=== PATIENT | male | born 1980 | race Caucasian/White ===

== ENCOUNTER 2023-11-23 00:23 | Inpatient (IN) | payer MEDICAID, OTHER ==
[~2023-11-23] VITALS: Ht 167.6 cm; Wt 81.4 kg
[2023-11-23] VITALS (78 sets, daily range): BP systolic 73–115; BP diastolic 44–71; TEMP 98.1–99.6; O2SAT 89–99
[~2023-11-23 00:23] MED LIST: METH10TA2 PO
[2023-11-23] MEDS: IV NS 0.9% 1,000 ML BAG IV ONE ×3 (00:47→03:00)
[2023-11-23 00:57] LABS: BASOPHILS % (AUTO) 0.2 % (0.0-2.0); EOSINOPHILS % (AUTO) 0.3 % (0.0-6.0); HEMATOCRIT 25 % (39-51); HEMOGLOBIN 8.3 g/dL (13.5-17.5); LYMPHOCYTES # (AUTO) 0.3 K/uL (0.8-4.8); LYMPHOCYTES % (AUTO) 3.5 % (20.0-44.0); MEAN CORPUSCULAR HEMOGLOBIN 29 PG (26.0-33.0); MEAN CORPUSCULAR HGB CONC 34 g/dl (31.0-36.0); MEAN CORPUSCULAR VOLUME 86 fL (80-96); MONOCYTES # (AUTO) 0.3 K/uL (0.1-1.30); MONOCYTES % (AUTO) 4.2 % (2.0-12.0); NEUTROPHILS # (AUTO) 7.1 K/uL (1.8-8.9); NEUTROPHILS % (AUTO) 91.8 % (43.0-81.0); PLATELET COUNT (AUTO) 268 K/uL (150-450); RED BLOOD CELL COUNT(AUTO) 2.88 MIL/uL (4.5-6.0); RED CELL DISTRIBUTION WIDTH 15.4 % (11.5-15.0); WHITE BLOOD COUNT (AUTO) 7.8 K/uL (4.3-11.0)
[2023-11-23 01:04] LABS: CALCIUM, SERUM 7.8 mg/dL (8.5-10.1); POTASSIUM 4.6 mmol/L (3.5-5.1)
[2023-11-23 01:10] LABS: BILIRUBIN,DIRECT 0.4 mg/dL (0.0-0.2); BILIRUBIN,TOTAL 0.6 mg/dL (0.2-1.0); TOTAL PROTEIN, SERUM 5.2 g/dL (6.4-8.2)
[2023-11-23 01:11] LABS: CREATININE 11.4 mg/dL (0.6-1.3)
[2023-11-23 01:49] LABS: APPEARANCE,URINE CLEAR (CLEAR); BILIRUBIN,URINE NEGATIVE (NEGATIVE); BLOOD, URINE 3+ Ery/uL (NEGATIVE); COLOR,URINE YELLOW (YELLOW); KETONES,URINE NEGATIVE (NEGATIVE); LEUKOCYTE ESTERASE ,URINE NEGATIVE (NEGATIVE); NITRITE, URINE NEGATIVE (NEGATIVE); PROTEIN,URINE 3+ mg/dl (NEGATIVE); UGLUCOSE TRACE mg/dL (NEGATIVE); UROBILINOGEN,URINE 0.2 EU/dL (0.2)
[2023-11-23 01:52] LABS: ADD URINE CULTURE NO; BACTERIA,URINE Rare /HPF (None Seen); RBC,URINE 21-50 /HPF (0-2); SQUAMOUS EPITHELIAL CELL,UR Few /HPF (None Seen)
[2023-11-23] MEDS ORDERED: MAG HYDROX/AL HYDROX/SIMETH 30 ML UDC PO PRN (02:30)
[2023-11-23] MEDS ORDERED: Z GUARD REMEDY 4 OZ OINT TP PRN (02:30)
[2023-11-23] MEDS ORDERED: NOREPINEPHRINE 8MG/250ML RTU 250 ML IV ONE (03:37)
[2023-11-23 03:52] LABS: NT-PRO BNP 15450 pg/mL (0-125)
[2023-11-23] MEDS: NOREPINEPHRINE 8 MG in IV D5W 242 ML IV PRN ×2 (03:52→05:21)
[2023-11-23] MEDS ORDERED: MORPHINE SULFATE INJ 2 MG/ML DISP.SYRIN ONE (04:05)
[2023-11-23] MEDS: MORPHINE SULFATE INJ 2 MG/ML DISP.SYRIN IV PRN ×2 (04:08→09:21)
[2023-11-23] MEDS ORDERED: NOREPINEPHRINE 8 MG in IV D5W 242 ML IV PRN (05:00)
[2023-11-23] MEDS: ALBUMIN 25% 25 GM in PREMIX 1 EA IV SCH (06:07)
[2023-11-23] MEDS: ALBUMIN 25% 100 ML IV ONE (06:14)
[2023-11-23] MEDS: NOREPINEPHRINE 8MG/250ML RTU 250 ML IV ONE (06:27)
[2023-11-23] MEDS ORDERED: MORPHINE SULFATE INJ 2 MG/ML DISP.SYRIN IV PRN ×2 (06:40→08:00)
[2023-11-23] MEDS: MORPHINE SULFATE INJ 2 MG/ML DISP.SYRIN IV ONE (06:47)
[2023-11-23] MEDS: PANTOPRAZOLE 40 MG TABLET.DR PO SCH (08:11)
[2023-11-23] MEDS: ASPIRIN 81 MG TAB.CHEW PO SCH (08:11)
[2023-11-23] MEDS: FUROSEMIDE 20 MG/2 ML VIAL IV SCH (08:11)
[2023-11-23 10:38] LABS: BASOPHILS % (AUTO) 0.1 % (0.0-2.0); EOSINOPHILS # (AUTO) 0.1 K/uL (0.0-0.7); EOSINOPHILS % (AUTO) 0.9 % (0.0-6.0); HEMATOCRIT 21 % (39-51); LYMPHOCYTES # (AUTO) 0.3 K/uL (0.8-4.8); LYMPHOCYTES % (AUTO) 2.7 % (20.0-44.0); MEAN CORPUSCULAR HEMOGLOBIN 28 PG (26.0-33.0); MEAN CORPUSCULAR HGB CONC 33 g/dl (31.0-36.0); MEAN CORPUSCULAR VOLUME 87 fL (80-96); MONOCYTES # (AUTO) 0.2 K/uL (0.1-1.30); NEUTROPHILS # (AUTO) 9.5 K/uL (1.8-8.9); NEUTROPHILS % (AUTO) 94.3 % (43.0-81.0); PLATELET COUNT (AUTO) 317 K/uL (150-450); WHITE BLOOD COUNT (AUTO) 10.1 K/uL (4.3-11.0)
[2023-11-23 10:47] LABS: HEMOGLOBIN 6.8 g/dL (13.5-17.5)
[2023-11-23 10:54] LABS: BILIRUBIN,DIRECT 0.4 mg/dL (0.0-0.2); BILIRUBIN,TOTAL 0.6 mg/dL (0.2-1.0); CALCIUM, SERUM 7.2 mg/dL (8.5-10.1); MAGNESIUM 1.9 mg/dL (1.8-2.4); PHOSPHORUS 6.3 mg/dL (2.5-4.9); POTASSIUM 4.4 mmol/L (3.5-5.1); TOTAL PROTEIN, SERUM 4.8 g/dL (6.4-8.2)
[2023-11-23 10:58] LABS: ALBUMIN 1.2 g/dL (3.4-5.0); CREATININE 11.2 mg/dL (0.6-1.3)
[2023-11-23 11:06] LABS: NT-PRO BNP 13089 pg/mL (0-125)
[2023-11-23 11:08] LABS: ANISOCYTOSIS 1+; BAND % (MANUAL) 3 % (0.0-5.0); BASOPHILS % (MANUAL) 0 % (0.0-2.0); EOSINOPHILS % (MANUAL) 0 % (0-4); LYMPHOCYTES % (MANUAL) 6 % (16-48); MONOCYTES % (MANUAL) 4 % (0-11.0); NEUTROPHILS % (MANUAL) 87 (42-76); PLATELET ESTIMATE ADEQUATE; THYROID STIMULATING HORMONE 3.81 uIU/mL (0.358-3.74)
[2023-11-23] MEDS ORDERED: LEVOTHYROXINE SODIUM 100 MCG TABLET PO SCH (13:00)
[2023-11-23] MEDS: ACETAMINOPHEN 325 MG TABLET PO PRN (13:16)
[2023-11-23] MEDS: CEFEPIME 2 GM in IV D5W 100 ML IV ONE (19:43)
[2023-11-23] MEDS: VANCOMYCIN 1 GM in IV D5W 250 ML IV SCH (20:17)
[2023-11-24] VITALS (83 sets, daily range): BP systolic 71–125; BP diastolic 37–63; TEMP 97.4–99.7; O2SAT 92–99
[2023-11-24] MEDS: ONDANSETRON HCL/PF 4 MG/2 ML VIAL IVP PRN (02:23)
[2023-11-24 05:35] LABS: CALCIUM, SERUM 7.3 mg/dL (8.5-10.1); POTASSIUM 4.7 mmol/L (3.5-5.1)
[2023-11-24 08:56] LABS: HEMATOCRIT 24 % (39-51); MEAN CORPUSCULAR HEMOGLOBIN 28 PG (26.0-33.0); MEAN CORPUSCULAR HGB CONC 33 g/dl (31.0-36.0); MEAN CORPUSCULAR VOLUME 86 fL (80-96); PLATELET COUNT (AUTO) 283 K/uL (150-450); RED BLOOD CELL COUNT(AUTO) 2.82 MIL/uL (4.5-6.0); RED CELL DISTRIBUTION WIDTH 15.5 % (11.5-15.0)
[2023-11-24 09:28] LABS: FERRITIN 430 ng/mL (8-388)
[2023-11-24 10:58] LABS: IRON, SERUM 5 ug/dl (50-175); TOTAL IRON BINDING CAPACITY 38 ug/dl (250-450)
[2023-11-24] MEDS ORDERED: HALOPERIDOL LACTATE INJ 5 MG/ML VIAL IV PRN (11:00)
[2023-11-24] MEDS: HALOPERIDOL LACTATE INJ 5 MG/ML VIAL IM PRN (11:07)
[2023-11-24] MEDS ORDERED: NEPRO VAN 237 ML CAN PO PRN (18:00)
[2023-11-24] MEDS: NOREPINEPHRINE 32 MG in IV NS 0.9% 218 ML IV PRN (20:15)
[2023-11-24] MEDS: CEFEPIME 1 GM in IV D5W 50 ML IV SCH (20:30)
[2023-11-25] VITALS (105 sets, daily range): BP systolic 77–115; BP diastolic 38–63; TEMP 97.6–99; O2SAT 90–98
[2023-11-25 04:28] LABS: CALCIUM, SERUM 7.7 mg/dL (8.5-10.1); POTASSIUM 4.3 mmol/L (3.5-5.1)
[2023-11-25] MEDS: DEXTROSE 50%-WATER 50 ML DISP.SYRIN IVP ONE (05:08)
[2023-11-25 09:09] LABS: HEPATITIS B CORE AB, IgM Negative (Negative); HEPATITIS B CORE AB, TOTAL Negative (Negative); HEPATITIS B SURFACE AB Reactive (.); HEPATITIS Be AG Negative (Negative)
[2023-11-25] MEDS: ALBUMIN 25% 25 GM in PREMIX 1 EA IV ONE (21:03)
[2023-11-25] MEDS: VANCOMYCIN POST DIALYSIS 500MG IV PRN (22:26)
[2023-11-26] VITALS (98 sets, daily range): BP systolic 92–125; BP diastolic 41–91; TEMP 97.6–100; O2SAT 66–98
[2023-11-26 04:34] LABS: EOSINOPHILS # (AUTO) 0.1 K/uL (0.0-0.7); EOSINOPHILS % (AUTO) 0.3 % (0.0-6.0); HEMATOCRIT 23 % (39-51); HEMOGLOBIN 7.6 g/dL (13.5-17.5); LYMPHOCYTES # (AUTO) 0.7 K/uL (0.8-4.8); LYMPHOCYTES % (AUTO) 2.3 % (20.0-44.0); MEAN CORPUSCULAR HEMOGLOBIN 28 PG (26.0-33.0); MEAN CORPUSCULAR HGB CONC 33 g/dl (31.0-36.0); MEAN CORPUSCULAR VOLUME 85 fL (80-96); MONOCYTES # (AUTO) 0.5 K/uL (0.1-1.30); MONOCYTES % (AUTO) 1.4 % (2.0-12.0); NEUTROPHILS # (AUTO) 31.1 K/uL (1.8-8.9); PLATELET COUNT (AUTO) 308 K/uL (150-450); RED BLOOD CELL COUNT(AUTO) 2.72 MIL/uL (4.5-6.0); RED CELL DISTRIBUTION WIDTH 15.5 % (11.5-15.0)
[2023-11-26 04:36] LABS: WHITE BLOOD COUNT (AUTO) 32.4 K/uL (4.3-11.0)
[2023-11-26 04:57] LABS: CALCIUM, SERUM 7.9 mg/dL (8.5-10.1); CREATININE 6.5 mg/dL (0.6-1.3); PHOSPHORUS 3.9 mg/dL (2.5-4.9); POTASSIUM 3.7 mmol/L (3.5-5.1)
[2023-11-26 06:25] LABS: ANISOCYTOSIS 1+; BAND % (MANUAL) 5 % (0.0-5.0); BASOPHILS % (MANUAL) 0 % (0.0-2.0); EOSINOPHILS % (MANUAL) 0 % (0-4); LYMPHOCYTES % (MANUAL) 4 % (16-48); MONOCYTES % (MANUAL) 2 % (0-11.0); NEUTROPHILS % (MANUAL) 89 (42-76); PLATELET ESTIMATE ADEQUATE; TARGET CELLS RARE
[2023-11-26] MEDS: IV D5/ 0.9% NACL 1,000 ML IV PRN (12:17)
[2023-11-26] MEDS: DEXTROSE 50%-WATER 50 ML DISP.SYRIN IVP ONE (12:21)
[2023-11-26] MEDS: MORPHINE SULFATE INJ 2 MG/ML DISP.SYRIN IV STA (21:22)
[2023-11-26] MEDS ORDERED: POLYETHYLENE GLYCOL 3350 17 GM POWD.PACK PO PRN (21:30)
[2023-11-27] VITALS (89 sets, daily range): BP systolic 84–127; BP diastolic 41–77; TEMP 97.6–98.5; O2SAT 88–96
[2023-11-27 04:54] LABS: BASOPHILS % (AUTO) 0.1 % (0.0-2.0); EOSINOPHILS # (AUTO) 0.2 K/uL (0.0-0.7); EOSINOPHILS % (AUTO) 0.6 % (0.0-6.0); HEMATOCRIT 23 % (39-51); HEMOGLOBIN 7.4 g/dL (13.5-17.5); LYMPHOCYTES # (AUTO) 0.6 K/uL (0.8-4.8); LYMPHOCYTES % (AUTO) 1.8 % (20.0-44.0); MEAN CORPUSCULAR HEMOGLOBIN 28 PG (26.0-33.0); MEAN CORPUSCULAR HGB CONC 33 g/dl (31.0-36.0); MEAN CORPUSCULAR VOLUME 85 fL (80-96); MONOCYTES # (AUTO) 0.6 K/uL (0.1-1.30); MONOCYTES % (AUTO) 1.7 % (2.0-12.0); NEUTROPHILS # (AUTO) 35.1 K/uL (1.8-8.9); NEUTROPHILS % (AUTO) 95.8 % (43.0-81.0); PLATELET COUNT (AUTO) 286 K/uL (150-450); RED BLOOD CELL COUNT(AUTO) 2.67 MIL/uL (4.5-6.0); RED CELL DISTRIBUTION WIDTH 15.6 % (11.5-15.0)
[2023-11-27 05:08] LABS: CALCIUM, SERUM 7.6 mg/dL (8.5-10.1); CREATININE 7.1 mg/dL (0.6-1.3); MAGNESIUM 1.8 mg/dL (1.8-2.4); PHOSPHORUS 3.3 mg/dL (2.5-4.9); POTASSIUM 3.8 mmol/L (3.5-5.1)
[2023-11-27 05:13] LABS: WHITE BLOOD COUNT (AUTO) 36.6 K/uL (4.3-11.0)
[2023-11-27 06:31] LABS: BAND % (MANUAL) 1 % (0.0-5.0); BASOPHILS % (MANUAL) 0 % (0.0-2.0); EOSINOPHILS % (MANUAL) 1 % (0-4); LYMPHOCYTES % (MANUAL) 5 % (16-48); MONOCYTES % (MANUAL) 3 % (0-11.0); NEUTROPHILS % (MANUAL) 89 (42-76)
[2023-11-27 06:32] LABS: MYELOCYTES % 1 % (0-0); PLATELET ESTIMATE ADEQUATE
[2023-11-27] MEDS: DOCUSATE SODIUM 100 MG CAPSULE PO SCH (08:11)
[2023-11-27] MEDS: MORPHINE SULFATE INJ 2 MG/ML DISP.SYRIN IV PRN (12:39)
[2023-11-27 13:52] LABS: HIV-1 p24 ANTIGEN NON REACTIVE (NONREACTIVE); HIV-1/2 ANTIBODY NON REACTIVE (NONREACTIVE)
[2023-11-27] MEDS: POLYETHYLENE GLYCOL 3350 17 GM POWD.PACK PO SCH (18:19)
[2023-11-28] VITALS (90 sets, daily range): BP systolic 99–142; BP diastolic 44–125; TEMP 97.9–98.7; O2SAT 85–98
[2023-11-28] MEDS ORDERED: MORPHINE SULFATE INJ 4 MG/ML DISP.SYRIN ONE ×2 (02:18→04:47)
[2023-11-28] MEDS: IV NS 0.9% 250 ML IV PRN (04:36)
[2023-11-28 07:09] LABS: HEPATITIS B SURFACE AB Reactive (.)
[2023-11-28 07:59] LABS: CALCIUM, SERUM 7.9 mg/dL (8.5-10.1); CREATININE 5.5 mg/dL (0.6-1.3); MAGNESIUM 1.8 mg/dL (1.8-2.4); PHOSPHORUS 3.8 mg/dL (2.5-4.9); POTASSIUM 3.8 mmol/L (3.5-5.1)
[2023-11-28 08:23] LABS: BASOPHILS % (AUTO) 0.1 % (0.0-2.0); EOSINOPHILS % (AUTO) 0.2 % (0.0-6.0); LYMPHOCYTES # (AUTO) 0.9 K/uL (0.8-4.8); LYMPHOCYTES % (AUTO) 3.7 % (20.0-44.0); MEAN CORPUSCULAR HEMOGLOBIN 29 PG (26.0-33.0); MEAN CORPUSCULAR HGB CONC 33 g/dl (31.0-36.0); MEAN CORPUSCULAR VOLUME 86 fL (80-96); MONOCYTES # (AUTO) 0.8 K/uL (0.1-1.30); MONOCYTES % (AUTO) 3.1 % (2.0-12.0); NEUTROPHILS # (AUTO) 22.6 K/uL (1.8-8.9); NEUTROPHILS % (AUTO) 92.9 % (43.0-81.0); PLATELET COUNT (AUTO) 235 K/uL (150-450); RED BLOOD CELL COUNT(AUTO) 2.35 MIL/uL (4.5-6.0); RED CELL DISTRIBUTION WIDTH 15.9 % (11.5-15.0); WHITE BLOOD COUNT (AUTO) 24.3 K/uL (4.3-11.0)
[2023-11-28 08:27] LABS: HEMOGLOBIN 6.7 g/dL (13.5-17.5)
[2023-11-28] MEDS: MORPHINE SULFATE INJ 4 MG/ML DISP.SYRIN IV PRN (09:03)
[2023-11-28 09:57] LABS: BAND % (MANUAL) 2 % (0.0-5.0); MONOCYTES % (MANUAL) 3 % (0-11.0); NEUTROPHILS % (MANUAL) 95 (42-76)
[2023-11-28 09:58] LABS: ANISOCYTOSIS 1+; OVALOCYTES 1+; PLATELET ESTIMATE ADEQUATE; TARGET CELLS 1+
[2023-11-28] MEDS: EPOETIN ALFA (10,000 UNIT) 10,000 UNIT/ML VIAL SQ ONE (09:58)
[2023-11-28 10:53] LABS: HEMATOCRIT 20 % (39-51)
[2023-11-28] MEDS: HALOPERIDOL LACTATE INJ 5 MG/ML VIAL IM ONE (11:25)
[2023-11-29] VITALS (27 sets, daily range): BP systolic 104–127; BP diastolic 56–71; TEMP 97–98; O2SAT 90–98
[2023-11-29 05:03] LABS: CALCIUM, SERUM 8.2 mg/dL (8.5-10.1); CREATININE 6.1 mg/dL (0.6-1.3); POTASSIUM 4.4 mmol/L (3.5-5.1)
[2023-11-29 13:11] LABS: BASOPHILS % (AUTO) 0.1 % (0.0-2.0); EOSINOPHILS # (AUTO) 0.1 K/uL (0.0-0.7); EOSINOPHILS % (AUTO) 0.3 % (0.0-6.0); HEMATOCRIT 22 % (39-51); HEMOGLOBIN 7.4 g/dL (13.5-17.5); LYMPHOCYTES # (AUTO) 0.6 K/uL (0.8-4.8); LYMPHOCYTES % (AUTO) 3.5 % (20.0-44.0); MEAN CORPUSCULAR HEMOGLOBIN 29 PG (26.0-33.0); MEAN CORPUSCULAR HGB CONC 34 g/dl (31.0-36.0); MEAN CORPUSCULAR VOLUME 87 fL (80-96); MONOCYTES # (AUTO) 0.5 K/uL (0.1-1.30); MONOCYTES % (AUTO) 2.8 % (2.0-12.0); NEUTROPHILS # (AUTO) 16.4 K/uL (1.8-8.9); NEUTROPHILS % (AUTO) 93.3 % (43.0-81.0); PLATELET COUNT (AUTO) 200 K/uL (150-450); RED BLOOD CELL COUNT(AUTO) 2.56 MIL/uL (4.5-6.0); RED CELL DISTRIBUTION WIDTH 15.4 % (11.5-15.0); WHITE BLOOD COUNT (AUTO) 17.6 K/uL (4.3-11.0)
[2023-11-29 13:33] LABS: BAND % (MANUAL) 2 % (0.0-5.0); LYMPHOCYTES % (MANUAL) 3 % (16-48); MONOCYTES % (MANUAL) 3 % (0-11.0); NEUTROPHILS % (MANUAL) 92 (42-76); PLATELET ESTIMATE ADEQUATE
[2023-11-29 13:37] LABS: ANISOCYTOSIS 1+
[2023-11-29 13:40] LABS: TARGET CELLS 1+
[2023-11-30] VITALS (63 sets, daily range): BP systolic 94–131; BP diastolic 47–71; TEMP 98–99.3; O2SAT 92–100
[2023-11-30 05:14] LABS: BASOPHILS % (AUTO) 0.1 % (0.0-2.0); EOSINOPHILS # (AUTO) 0.1 K/uL (0.0-0.7); EOSINOPHILS % (AUTO) 0.4 % (0.0-6.0); HEMATOCRIT 22 % (39-51); HEMOGLOBIN 7.3 g/dL (13.5-17.5); LYMPHOCYTES # (AUTO) 0.6 K/uL (0.8-4.8); LYMPHOCYTES % (AUTO) 4.1 % (20.0-44.0); MEAN CORPUSCULAR HEMOGLOBIN 28 PG (26.0-33.0); MEAN CORPUSCULAR HGB CONC 33 g/dl (31.0-36.0); MEAN CORPUSCULAR VOLUME 86 fL (80-96); MONOCYTES # (AUTO) 0.6 K/uL (0.1-1.30); MONOCYTES % (AUTO) 3.6 % (2.0-12.0); NEUTROPHILS # (AUTO) 14.1 K/uL (1.8-8.9); NEUTROPHILS % (AUTO) 91.8 % (43.0-81.0); PLATELET COUNT (AUTO) 178 K/uL (150-450); RED BLOOD CELL COUNT(AUTO) 2.58 MIL/uL (4.5-6.0); RED CELL DISTRIBUTION WIDTH 15.2 % (11.5-15.0); WHITE BLOOD COUNT (AUTO) 15.4 K/uL (4.3-11.0)
[2023-11-30 05:40] LABS: CALCIUM, SERUM 7.3 mg/dL (8.5-10.1); CREATININE 5.2 mg/dL (0.6-1.3); MAGNESIUM 2.1 mg/dL (1.8-2.4); PHOSPHORUS 5.5 mg/dL (2.5-4.9); POTASSIUM 4.5 mmol/L (3.5-5.1)
[2023-11-30] MEDS ORDERED: MIDAZOLAM HCL 2 MG/2ML VIAL ONE (11:58)
[2023-11-30] MEDS: EPOETIN ALFA (10,000 UNIT) 10,000 UNIT/ML VIAL SQ SCH (15:00)
[2023-12-01] VITALS (13 sets, daily range): BP systolic 109–136; BP diastolic 61–78; TEMP 97.9–98.7; O2SAT 93–97
[2023-12-01 04:03] LABS: BASOPHILS % (AUTO) 0.2 % (0.0-2.0); EOSINOPHILS # (AUTO) 0.1 K/uL (0.0-0.7); EOSINOPHILS % (AUTO) 0.4 % (0.0-6.0); HEMATOCRIT 22 % (39-51); HEMOGLOBIN 7.1 g/dL (13.5-17.5); LYMPHOCYTES # (AUTO) 0.6 K/uL (0.8-4.8); LYMPHOCYTES % (AUTO) 3.2 % (20.0-44.0); MEAN CORPUSCULAR HEMOGLOBIN 27 PG (26.0-33.0); MEAN CORPUSCULAR HGB CONC 32 g/dl (31.0-36.0); MEAN CORPUSCULAR VOLUME 86 fL (80-96); MONOCYTES # (AUTO) 0.5 K/uL (0.1-1.30); MONOCYTES % (AUTO) 3.1 % (2.0-12.0); NEUTROPHILS # (AUTO) 16.1 K/uL (1.8-8.9); NEUTROPHILS % (AUTO) 93.1 % (43.0-81.0); PLATELET COUNT (AUTO) 189 K/uL (150-450); RED CELL DISTRIBUTION WIDTH 16.2 % (11.5-15.0); WHITE BLOOD COUNT (AUTO) 17.3 K/uL (4.3-11.0)
[2023-12-01 04:17] LABS: POTASSIUM 5.1 mmol/L (3.5-5.1)
[2023-12-01 04:18] LABS: CREATININE 6.1 mg/dL (0.6-1.3)
[2023-12-01 04:38] LABS: MAGNESIUM 2.1 mg/dL (1.8-2.4); PHOSPHORUS 7.6 mg/dL (2.5-4.9)
[2023-12-02 04:00] VITALS: BP 135/67; TEMP 98.9; O2SAT 100
[2023-12-02 07:51] LABS: BASOPHILS % (AUTO) 0.1 % (0.0-2.0); EOSINOPHILS % (AUTO) 0.2 % (0.0-6.0); HEMATOCRIT 21 % (39-51); HEMOGLOBIN 7.1 g/dL (13.5-17.5); LYMPHOCYTES # (AUTO) 0.8 K/uL (0.8-4.8); LYMPHOCYTES % (AUTO) 4.7 % (20.0-44.0); MEAN CORPUSCULAR HEMOGLOBIN 29 PG (26.0-33.0); MEAN CORPUSCULAR HGB CONC 34 g/dl (31.0-36.0); MEAN CORPUSCULAR VOLUME 84 fL (80-96); MONOCYTES # (AUTO) 0.7 K/uL (0.1-1.30); MONOCYTES % (AUTO) 4.1 % (2.0-12.0); NEUTROPHILS # (AUTO) 14.5 K/uL (1.8-8.9); NEUTROPHILS % (AUTO) 90.9 % (43.0-81.0); PLATELET COUNT (AUTO) 221 K/uL (150-450); RED BLOOD CELL COUNT(AUTO) 2.48 MIL/uL (4.5-6.0); RED CELL DISTRIBUTION WIDTH 16.2 % (11.5-15.0)
[2023-12-02 08:00] VITALS: BP 126/67; TEMP 98.4; O2SAT 93; O2SAT 94
[2023-12-02 08:17] LABS: CALCIUM, SERUM 7.6 mg/dL (8.5-10.1); CREATININE 5.3 mg/dL (0.6-1.3); MAGNESIUM 2.2 mg/dL (1.8-2.4); PHOSPHORUS 7.9 mg/dL (2.5-4.9); POTASSIUM 5.2 mmol/L (3.5-5.1)
[2023-12-02] MEDS: SERTRALINE HCL 25 MG TABLET PO SCH (12:02)
[2023-12-02] MEDS: SODIUM POLYSTYRENE SULFONATE 15 G/60 ML BOTTLE PO ONE (13:25)
[2023-12-02 16:00] VITALS: BP 126/73; TEMP 98.4; O2SAT 98
[2023-12-02 18:00] VITALS: BP 126/73; TEMP 98.4; O2SAT 98
[2023-12-02 20:00] VITALS: BP 113/67; TEMP 98.1; O2SAT 96
[2023-12-03 04:00] VITALS: BP 138/71; TEMP 98.5; O2SAT 95
[2023-12-03 07:10] LABS: BASOPHILS % (AUTO) 0.3 % (0.0-2.0); EOSINOPHILS # (AUTO) 0.1 K/uL (0.0-0.7); EOSINOPHILS % (AUTO) 0.4 % (0.0-6.0); HEMATOCRIT 21 % (39-51); LYMPHOCYTES # (AUTO) 0.8 K/uL (0.8-4.8); LYMPHOCYTES % (AUTO) 5.4 % (20.0-44.0); MEAN CORPUSCULAR HEMOGLOBIN 28 PG (26.0-33.0); MEAN CORPUSCULAR HGB CONC 33 g/dl (31.0-36.0); MEAN CORPUSCULAR VOLUME 85 fL (80-96); MONOCYTES # (AUTO) 0.7 K/uL (0.1-1.30); MONOCYTES % (AUTO) 4.8 % (2.0-12.0); NEUTROPHILS # (AUTO) 13.1 K/uL (1.8-8.9); NEUTROPHILS % (AUTO) 89.1 % (43.0-81.0); PLATELET COUNT (AUTO) 255 K/uL (150-450); RED BLOOD CELL COUNT(AUTO) 2.52 MIL/uL (4.5-6.0); RED CELL DISTRIBUTION WIDTH 16.2 % (11.5-15.0); WHITE BLOOD COUNT (AUTO) 14.7 K/uL (4.3-11.0)
[2023-12-03 07:15] LABS: HEMOGLOBIN 6.9 g/dL (13.5-17.5)
[2023-12-03 07:31] LABS: CALCIUM, SERUM 7.3 mg/dL (8.5-10.1); CREATININE 6.4 mg/dL (0.6-1.3); MAGNESIUM 2.3 mg/dL (1.8-2.4); POTASSIUM 5.6 mmol/L (3.5-5.1)
[2023-12-03 08:02] LABS: PHOSPHORUS 10.2 mg/dL (2.5-4.9)
[2023-12-03] MEDS: VIT B CMPLX 3/FA/VIT C/BIOTIN 1 TAB TABLET PO SCH (08:44)
[2023-12-03 11:32] LABS: ANISOCYTOSIS 1+; BAND % (MANUAL) 2 % (0.0-5.0); BASOPHILS % (MANUAL) 0 % (0.0-2.0); EOSINOPHILS % (MANUAL) 0 % (0-4); HYPOCHROMASIA 1+; LYMPHOCYTES % (MANUAL) 6 % (16-48); MONOCYTES % (MANUAL) 4 % (0-11.0); NEUTROPHILS % (MANUAL) 88 (42-76); PLATELET ESTIMATE ADEQUATE; TARGET CELLS 1+
[2023-12-03 12:00] VITALS: BP 119/72; TEMP 98; O2SAT 95
[2023-12-03 12:25] VITALS: BP 90/61; TEMP 98
[2023-12-03 12:40] VITALS: BP 91/54; TEMP 98.5
[2023-12-03] MEDS: SEVELAMER CARBONATE 800 MG TABLET PO SCH (13:00)
[2023-12-03 13:15] VITALS: BP 108/64; TEMP 98.6
[2023-12-03 19:59] LABS: HEMOGLOBIN 8.9 g/dL (13.5-17.5)
[2023-12-03 20:00] VITALS: BP 92/61; TEMP 98.1; O2SAT 96
[2023-12-04] VITALS (26 sets, daily range): BP systolic 78–133; BP diastolic 50–91; TEMP 98–98.2; O2SAT 2–100
[2023-12-04] MEDS ORDERED: DILTIAZEM HCL 50 MG IV IV ONE (01:00)
[2023-12-04] MEDS ORDERED: DILTIAZEM HCL 50 MG IV ONE (01:14)
[2023-12-04] MEDS: IV NS 0.9% 500 ML IV ONE (01:23)
[2023-12-04] MEDS: DILTIAZEM HCL 25 MG IV IV ONE (04:28)
[2023-12-04 07:26] LABS: BASOPHILS % (AUTO) 0.2 % (0.0-2.0); EOSINOPHILS % (AUTO) 0.3 % (0.0-6.0); HEMATOCRIT 25 % (39-51); HEMOGLOBIN 8.4 g/dL (13.5-17.5); LYMPHOCYTES # (AUTO) 0.6 K/uL (0.8-4.8); LYMPHOCYTES % (AUTO) 5.3 % (20.0-44.0); MEAN CORPUSCULAR HEMOGLOBIN 28 PG (26.0-33.0); MEAN CORPUSCULAR HGB CONC 33 g/dl (31.0-36.0); MEAN CORPUSCULAR VOLUME 85 fL (80-96); MONOCYTES # (AUTO) 0.6 K/uL (0.1-1.30); MONOCYTES % (AUTO) 5.2 % (2.0-12.0); NEUTROPHILS # (AUTO) 10.8 K/uL (1.8-8.9); PLATELET COUNT (AUTO) 266 K/uL (150-450); RED BLOOD CELL COUNT(AUTO) 2.94 MIL/uL (4.5-6.0); RED CELL DISTRIBUTION WIDTH 16.2 % (11.5-15.0); WHITE BLOOD COUNT (AUTO) 12.2 K/uL (4.3-11.0)
[2023-12-04 07:59] LABS: BILIRUBIN,TOTAL 3.9 mg/dL (0.2-1.0); CALCIUM, SERUM 7.1 mg/dL (8.5-10.1); CREATININE 5.1 mg/dL (0.6-1.3); MAGNESIUM 2.2 mg/dL (1.8-2.4); TOTAL PROTEIN, SERUM 6.6 g/dL (6.4-8.2)
[2023-12-04 08:10] LABS: ALBUMIN 0.7 g/dL (3.4-5.0); PHOSPHORUS 8.4 mg/dL (2.5-4.9)
[2023-12-04] MEDS: IV NS 0.9% 1,000 ML IV ONE (08:18)
[2023-12-04] MEDS: HYDROMORPHONE 1 MG/1 ML DISP.SYRIN IV ONE (09:55)
[2023-12-04] MEDS ORDERED: PHENYLEPHRINE 50 MG in IV NS 0.9% 245 ML IV PRN (10:00)
[2023-12-04 10:13] LABS: ABG OXYGEN SATURATION 96.1 % (94.0-98.0); ABG PCO2 41.2 mmHg (35.0-48.0); ABG PH 7.467 (7.350-7.450); ABG TOTAL HEMOGLOBIN 9.2 G/dL (13.5-17.5); COHb 0.3 % (0.5-1.5); MetHb 0.1 % (0.0-1.5); O2Hb 95.7 % (94.0-97.0); SITE, ABG RIGHT RADIAL
[2023-12-04] MEDS: PHENYLEPHRINE 50 MG in IV NS 0.9% 245 ML IV PRN (10:51)
[2023-12-04] MEDS ORDERED: hydrALAZINE HCL IV 20 MG VIAL ONE ×2 (16:40→16:41)
[2023-12-05] VITALS (86 sets, daily range): BP systolic 84–119; BP diastolic 50–77; TEMP 97.4–98.2; O2SAT 2–100
[2023-12-05 00:39] LABS: ABG OXYGEN SATURATION 93.6 % (94.0-98.0); ABG PCO2 38.4 mmHg (35.0-48.0); ABG PH 7.449 (7.350-7.450); ABG TOTAL HEMOGLOBIN 9.6 G/dL (13.5-17.5); COHb 0.4 % (0.5-1.5); MetHb 0.3 % (0.0-1.5); O2Hb 92.9 % (94.0-97.0); SITE, ABG LEFT FEMORAL
[2023-12-05] MEDS: DILTIAZEM HCL 50 MG IV IV ONE (01:55)
[2023-12-05 04:52] LABS: BASOPHILS # (AUTO) 0.1 K/uL (0.0-0.2); BASOPHILS % (AUTO) 0.5 % (0.0-2.0); EOSINOPHILS % (AUTO) 0.2 % (0.0-6.0); HEMATOCRIT 25 % (39-51); HEMOGLOBIN 8.3 g/dL (13.5-17.5); LYMPHOCYTES # (AUTO) 0.8 K/uL (0.8-4.8); LYMPHOCYTES % (AUTO) 6.4 % (20.0-44.0); MEAN CORPUSCULAR HEMOGLOBIN 29 PG (26.0-33.0); MEAN CORPUSCULAR HGB CONC 34 g/dl (31.0-36.0); MEAN CORPUSCULAR VOLUME 86 fL (80-96); MONOCYTES # (AUTO) 0.5 K/uL (0.1-1.30); NEUTROPHILS # (AUTO) 11.1 K/uL (1.8-8.9); NEUTROPHILS % (AUTO) 88.9 % (43.0-81.0); PLATELET COUNT (AUTO) 322 K/uL (150-450); RED BLOOD CELL COUNT(AUTO) 2.87 MIL/uL (4.5-6.0); RED CELL DISTRIBUTION WIDTH 16.2 % (11.5-15.0); WHITE BLOOD COUNT (AUTO) 12.5 K/uL (4.3-11.0)
[2023-12-05 05:22] LABS: BILIRUBIN,TOTAL 3.6 mg/dL (0.2-1.0); CREATININE 5.7 mg/dL (0.6-1.3); MAGNESIUM 2.2 mg/dL (1.8-2.4); POTASSIUM 5.5 mmol/L (3.5-5.1); TOTAL PROTEIN, SERUM 6.3 g/dL (6.4-8.2)
[2023-12-05 05:25] LABS: ALBUMIN 0.7 g/dL (3.4-5.0); PHOSPHORUS 9.2 mg/dL (2.5-4.9)
[2023-12-05] MEDS: DEXTROSE 50%-WATER 50 ML DISP.SYRIN IV PRN (07:22)
[2023-12-05] MEDS ORDERED: INSULIN REGULAR, HUMAN 100 UNIT/ML 3 ML VIAL SQ PRN (07:30)
[2023-12-05] MEDS: BLOOD SUGAR DIAGNOSTIC 1 EACH STRIP IN SCH ×2 (08:55→21:56)
[2023-12-05] MEDS: IV 10% DEXTROSE 1,000 ML IV SCH (10:15)
[2023-12-05] MEDS: MEROPENEM 500MG/NS 50 ML PB IV ONE (21:53)
[2023-12-05] MEDS: MEROPENEM 1 G in IV NS 0.9% 100 ML IV SCH (22:11)
[2023-12-06] VITALS (95 sets, daily range): BP systolic 89–125; BP diastolic 55–85; TEMP 98.5–98.9; O2SAT 94–100
[2023-12-06] MEDS: BLOOD SUGAR DIAGNOSTIC 1 EACH STRIP IN SCH (00:11)
[2023-12-06 04:47] LABS: BASOPHILS # (AUTO) 0.1 K/uL (0.0-0.2); BASOPHILS % (AUTO) 0.6 % (0.0-2.0); EOSINOPHILS % (AUTO) 0.3 % (0.0-6.0); HEMATOCRIT 23 % (39-51); HEMOGLOBIN 7.8 g/dL (13.5-17.5); LYMPHOCYTES # (AUTO) 0.8 K/uL (0.8-4.8); LYMPHOCYTES % (AUTO) 8.3 % (20.0-44.0); MEAN CORPUSCULAR HEMOGLOBIN 29 PG (26.0-33.0); MEAN CORPUSCULAR HGB CONC 34 g/dl (31.0-36.0); MEAN CORPUSCULAR VOLUME 86 fL (80-96); MONOCYTES # (AUTO) 0.6 K/uL (0.1-1.30); MONOCYTES % (AUTO) 6.7 % (2.0-12.0); NEUTROPHILS % (AUTO) 84.1 % (43.0-81.0); PLATELET COUNT (AUTO) 297 K/uL (150-450); RED BLOOD CELL COUNT(AUTO) 2.66 MIL/uL (4.5-6.0); WHITE BLOOD COUNT (AUTO) 9.5 K/uL (4.3-11.0)
[2023-12-06 05:01] LABS: BILIRUBIN,DIRECT 2.6 mg/dL (0.0-0.2); BILIRUBIN,TOTAL 3.1 mg/dL (0.2-1.0); CALCIUM, SERUM 7.1 mg/dL (8.5-10.1); CREATININE 5.2 mg/dL (0.6-1.3); MAGNESIUM 2.2 mg/dL (1.8-2.4); PHOSPHORUS 7.5 mg/dL (2.5-4.9); POTASSIUM 5.1 mmol/L (3.5-5.1); TOTAL PROTEIN, SERUM 6.4 g/dL (6.4-8.2)
[2023-12-06 05:15] LABS: ALBUMIN 0.7 g/dL (3.4-5.0)
[2023-12-06] MEDS: ALBUMIN 25% 25 GM in PREMIX 1 EA IV SCH (07:50)
[2023-12-06] MEDS: ALPRAZOLAM 0.25 MG TABLET PO ONE (11:28)
[2023-12-06] MEDS: MUPIROCIN OINT 2% 22 GM TUBE TP SCH (11:30)
[2023-12-07] VITALS (46 sets, daily range): BP systolic 89–136; BP diastolic 52–119; TEMP 98.2–98.7; O2SAT 80–100
[2023-12-07] MEDS: DILTIAZEM HCL 25 MG IV ONE (00:43)
[2023-12-07 05:42] LABS: BASOPHILS % (AUTO) 0.5 % (0.0-2.0); EOSINOPHILS % (AUTO) 0.3 % (0.0-6.0); HEMATOCRIT 23 % (39-51); HEMOGLOBIN 7.5 g/dL (13.5-17.5); LYMPHOCYTES # (AUTO) 0.7 K/uL (0.8-4.8); LYMPHOCYTES % (AUTO) 7.8 % (20.0-44.0); MEAN CORPUSCULAR HEMOGLOBIN 28 PG (26.0-33.0); MEAN CORPUSCULAR HGB CONC 33 g/dl (31.0-36.0); MEAN CORPUSCULAR VOLUME 87 fL (80-96); MONOCYTES # (AUTO) 0.7 K/uL (0.1-1.30); NEUTROPHILS # (AUTO) 7.7 K/uL (1.8-8.9); NEUTROPHILS % (AUTO) 83.4 % (43.0-81.0); PLATELET COUNT (AUTO) 299 K/uL (150-450); RED BLOOD CELL COUNT(AUTO) 2.65 MIL/uL (4.5-6.0); RED CELL DISTRIBUTION WIDTH 16.1 % (11.5-15.0); WHITE BLOOD COUNT (AUTO) 9.2 K/uL (4.3-11.0)
[2023-12-07 05:57] LABS: BILIRUBIN,DIRECT 1.8 mg/dL (0.0-0.2); BILIRUBIN,TOTAL 2.4 mg/dL (0.2-1.0); MAGNESIUM 1.9 mg/dL (1.8-2.4); TOTAL PROTEIN, SERUM 6.5 g/dL (6.4-8.2)
[2023-12-07 05:59] LABS: ALBUMIN 1.2 g/dL (3.4-5.0)
[2023-12-07 06:05] LABS: CALCIUM, SERUM 7.3 mg/dL (8.5-10.1); CREATININE 4.6 mg/dL (0.6-1.3); POTASSIUM 4.7 mmol/L (3.5-5.1)
[2023-12-07] MEDS: ALBUMIN 25% 25 GM in PREMIX 1 EA IV SCH (08:31)
[2023-12-07] MEDS: SERTRALINE HCL 25 MG TABLET PO SCH (08:32)
[2023-12-07] MEDS: AMIODARONE 150 MG in IV D5W 100 ML IV ONE (08:48)
[2023-12-07] MEDS: AMIODARONE 450 MG in IV D5W 241 ML IV PRN (09:28)
[2023-12-07] MEDS: FLECAINIDE ACETATE (100 MG) 100 MG TABLET PO SCH (11:03)
[2023-12-08] VITALS (38 sets, daily range): BP systolic 119–161; BP diastolic 73–103; TEMP 97.3–99.1; O2SAT 85–100
[2023-12-08] MEDS ORDERED: DILTIAZEM HCL 50 MG IV IV ONE (01:00)
[2023-12-08 04:42] LABS: CALCIUM, SERUM 7.5 mg/dL (8.5-10.1); CREATININE 4.2 mg/dL (0.6-1.3); POTASSIUM 4.2 mmol/L (3.5-5.1)
[2023-12-08] MEDS: NYSTATIN (PYXIS) 500,000 UNIT/5 ML ORAL.SUSP PO SCH (09:17)
[2023-12-08] MEDS: DILTIAZEM HCL CD 240 MG PO SCH (09:18)
[2023-12-08] MEDS: DIGOXIN INJ 0.5 MG/2 ML AMPUL IV SCH (11:21)
[2023-12-08] MEDS: CLONIDINE HCL 0.1MG/24H PTWK 1 EA PATCH TD SCH (15:20)
[2023-12-08] MEDS: NICOTINE PATCH (21MG) 21 MG PATCH.TD24 TD SCH (15:58)
[2023-12-09] VITALS (22 sets, daily range): BP systolic 126–155; BP diastolic 70–83; TEMP 98.3–99.2; O2SAT 88–97
[2023-12-09 04:33] LABS: BASOPHILS % (AUTO) 0.2 % (0.0-2.0); EOSINOPHILS % (AUTO) 0.2 % (0.0-6.0); HEMATOCRIT 25 % (39-51); HEMOGLOBIN 7.9 g/dL (13.5-17.5); LYMPHOCYTES # (AUTO) 0.8 K/uL (0.8-4.8); LYMPHOCYTES % (AUTO) 7.5 % (20.0-44.0); MEAN CORPUSCULAR HEMOGLOBIN 28 PG (26.0-33.0); MEAN CORPUSCULAR HGB CONC 32 g/dl (31.0-36.0); MEAN CORPUSCULAR VOLUME 88 fL (80-96); MONOCYTES # (AUTO) 1.1 K/uL (0.1-1.30); MONOCYTES % (AUTO) 10.4 % (2.0-12.0); NEUTROPHILS % (AUTO) 81.7 % (43.0-81.0); PLATELET COUNT (AUTO) 267 K/uL (150-450); RED BLOOD CELL COUNT(AUTO) 2.81 MIL/uL (4.5-6.0); RED CELL DISTRIBUTION WIDTH 16.2 % (11.5-15.0); WHITE BLOOD COUNT (AUTO) 11.1 K/uL (4.3-11.0)
[2023-12-09 04:51] LABS: CALCIUM, SERUM 7.7 mg/dL (8.5-10.1); CREATININE 3.8 mg/dL (0.6-1.3); MAGNESIUM 1.7 mg/dL (1.8-2.4); PHOSPHORUS 4.6 mg/dL (2.5-4.9)
[2023-12-09] MEDS: Magnesium 1GM/D5W 100ML PREMIX 100 ML IV SCH (08:53)
[2023-12-09] MEDS: HYDROCODONE/APAP 5/325MG TABLET PO PRN (12:08)
[2023-12-09] MEDS: MORPHINE SULFATE INJ 4 MG/ML DISP.SYRIN IV PRN (16:05)
[2023-12-10] VITALS (8 sets, daily range): BP systolic 121–138; BP diastolic 65–76; TEMP 97.7–98.6; O2SAT 94–96
[2023-12-10] MEDS: BLOOD SUGAR DIAGNOSTIC 1 EACH STRIP IN SCH (00:18)
[2023-12-10] MEDS: INSULIN REGULAR, HUMAN 100 UNIT/ML 3 ML VIAL SQ PRN (00:20)
[2023-12-10 06:38] LABS: BASOPHILS % (AUTO) 0.4 % (0.0-2.0); EOSINOPHILS % (AUTO) 0.3 % (0.0-6.0); HEMATOCRIT 23 % (39-51); HEMOGLOBIN 7.6 g/dL (13.5-17.5); LYMPHOCYTES # (AUTO) 0.8 K/uL (0.8-4.8); MEAN CORPUSCULAR HEMOGLOBIN 29 PG (26.0-33.0); MEAN CORPUSCULAR HGB CONC 33 g/dl (31.0-36.0); MEAN CORPUSCULAR VOLUME 87 fL (80-96); MONOCYTES % (AUTO) 10.2 % (2.0-12.0); NEUTROPHILS # (AUTO) 8.1 K/uL (1.8-8.9); NEUTROPHILS % (AUTO) 81.1 % (43.0-81.0); PLATELET COUNT (AUTO) 219 K/uL (150-450); RED BLOOD CELL COUNT(AUTO) 2.68 MIL/uL (4.5-6.0); RED CELL DISTRIBUTION WIDTH 15.6 % (11.5-15.0)
[2023-12-10 06:45] LABS: CALCIUM, SERUM 7.6 mg/dL (8.5-10.1); CREATININE 3.8 mg/dL (0.6-1.3); PHOSPHORUS 4.4 mg/dL (2.5-4.9); POTASSIUM 4.2 mmol/L (3.5-5.1)
[2023-12-10] MEDS ORDERED: FLECAINIDE ACETATE (100 MG) 100 MG TABLET PO SCH (09:00)
[2023-12-10] MEDS: KETOROLAC TROMETHAMINE INJ 30 MG/ML VIAL IV PRN (12:46)
[2023-12-10] MEDS: METHADONE HCL 10 MG TABLET PO SCH (17:17)
[2023-12-10] MEDS ORDERED: NEPRO VAN 237 ML CAN PO PRN (18:30)
[2023-12-11] VITALS: BP 116/64; TEMP 98.7; O2SAT 95
[2023-12-11 04:00] VITALS: BP 122/70; TEMP 98.1; O2SAT 97
[2023-12-11 07:41] LABS: BASOPHILS # (AUTO) 0.1 K/uL (0.0-0.2); BASOPHILS % (AUTO) 0.5 % (0.0-2.0); EOSINOPHILS # (AUTO) 0.1 K/uL (0.0-0.7); EOSINOPHILS % (AUTO) 0.9 % (0.0-6.0); HEMATOCRIT 23 % (39-51); HEMOGLOBIN 7.4 g/dL (13.5-17.5); LYMPHOCYTES # (AUTO) 1.1 K/uL (0.8-4.8); LYMPHOCYTES % (AUTO) 10.6 % (20.0-44.0); MEAN CORPUSCULAR HEMOGLOBIN 29 PG (26.0-33.0); MEAN CORPUSCULAR HGB CONC 33 g/dl (31.0-36.0); MEAN CORPUSCULAR VOLUME 87 fL (80-96); MONOCYTES # (AUTO) 0.9 K/uL (0.1-1.30); NEUTROPHILS # (AUTO) 8.2 K/uL (1.8-8.9); PLATELET COUNT (AUTO) 253 K/uL (150-450); WHITE BLOOD COUNT (AUTO) 10.4 K/uL (4.3-11.0)
[2023-12-11 07:54] LABS: CALCIUM, SERUM 7.4 mg/dL (8.5-10.1); CREATININE 3.7 mg/dL (0.6-1.3); MAGNESIUM 2.1 mg/dL (1.8-2.4); PHOSPHORUS 4.3 mg/dL (2.5-4.9)
[2023-12-11 08:00] VITALS: BP 129/77; TEMP 97.9; O2SAT 97
[2023-12-11] MEDS: GLUCERNA SHAKE 237 ML CAN PO SCH (09:06)
[2023-12-11 12:00] VITALS: BP 130/79; TEMP 98.1; O2SAT 97
[2023-12-11 16:00] VITALS: BP 146/70; TEMP 97.9; O2SAT 98
[2023-12-11] MEDS ORDERED: [UNRECOGNIZED DRUG - CODE] SQ (18:15)
[2023-12-11 20:00] VITALS: BP 134/73; TEMP 98.2; O2SAT 96
[2023-12-12] VITALS (10 sets, daily range): BP systolic 123–152; BP diastolic 66–90; TEMP 97.8–99.3; O2SAT 97
[2023-12-12 08:31] LABS: INR 1.12 (0.91-1.10); PARTIAL THROMBOPLASTIN TIME 27.1 SEC (24.3-34.3); PROTHROMBIN TIME 11.8 SECS (9.2-11.1)
[2023-12-12 08:39] LABS: CALCIUM, SERUM 7.7 mg/dL (8.5-10.1); MAGNESIUM 2.2 mg/dL (1.8-2.4); PHOSPHORUS 4.9 mg/dL (2.5-4.9); POTASSIUM 4.3 mmol/L (3.5-5.1)
[2023-12-12 08:43] LABS: BASOPHILS # (AUTO) 0.1 K/uL (0.0-0.2); BASOPHILS % (AUTO) 0.7 % (0.0-2.0); EOSINOPHILS # (AUTO) 0.1 K/uL (0.0-0.7); EOSINOPHILS % (AUTO) 0.8 % (0.0-6.0); HEMATOCRIT 21 % (39-51); LYMPHOCYTES # (AUTO) 0.9 K/uL (0.8-4.8); LYMPHOCYTES % (AUTO) 8.4 % (20.0-44.0); MEAN CORPUSCULAR HEMOGLOBIN 29 PG (26.0-33.0); MEAN CORPUSCULAR HGB CONC 34 g/dl (31.0-36.0); MEAN CORPUSCULAR VOLUME 87 fL (80-96); MONOCYTES # (AUTO) 0.6 K/uL (0.1-1.30); MONOCYTES % (AUTO) 5.8 % (2.0-12.0); NEUTROPHILS % (AUTO) 84.3 % (43.0-81.0); PLATELET COUNT (AUTO) 289 K/uL (150-450); RED CELL DISTRIBUTION WIDTH 15.8 % (11.5-15.0); WHITE BLOOD COUNT (AUTO) 10.7 K/uL (4.3-11.0)
[2023-12-12] MEDS ORDERED: LIDOCAINE 1% INJ 50 ML MDV IJ ONE (08:50)
[2023-12-12] MEDS ORDERED: HEPARIN SODIUM, PORCINE 1,000 UNIT/ML VIAL ONE (08:50)
[2023-12-12] MEDS ORDERED: ANESTHESIA TRAY IN PYXIS 1 EA TRAY MC ONE (08:50)
[2023-12-12] MEDS ORDERED: IOHEXOL 0 ML IV ONE (08:51)
[2023-12-12] MEDS ORDERED: FENTANYL PF 100MCG/2ML AMPUL ONE (09:35)
[2023-12-12] MEDS ORDERED: MIDAZOLAM HCL 2 MG/2ML VIAL ONE (09:35)
[2023-12-12] MEDS: ANCEF 1 GM/50 ML D5W IV SCH (17:31)
[2023-12-12] MEDS: [UNRECOGNIZED DRUG - OTHER] SQ SCH (17:32)
[2023-12-12 18:31] LABS: BASOPHILS # (AUTO) 0.1 K/uL (0.0-0.2); BASOPHILS % (AUTO) 0.9 % (0.0-2.0); EOSINOPHILS # (AUTO) 0.1 K/uL (0.0-0.7); HEMATOCRIT 25 % (39-51); HEMOGLOBIN 8.3 g/dL (13.5-17.5); LYMPHOCYTES # (AUTO) 0.9 K/uL (0.8-4.8); LYMPHOCYTES % (AUTO) 7.4 % (20.0-44.0); MEAN CORPUSCULAR HEMOGLOBIN 29 PG (26.0-33.0); MEAN CORPUSCULAR HGB CONC 33 g/dl (31.0-36.0); MEAN CORPUSCULAR VOLUME 86 fL (80-96); MONOCYTES # (AUTO) 0.6 K/uL (0.1-1.30); MONOCYTES % (AUTO) 5.4 % (2.0-12.0); NEUTROPHILS # (AUTO) 9.9 K/uL (1.8-8.9); NEUTROPHILS % (AUTO) 85.3 % (43.0-81.0); PLATELET COUNT (AUTO) 313 K/uL (150-450); RED BLOOD CELL COUNT(AUTO) 2.89 MIL/uL (4.5-6.0); WHITE BLOOD COUNT (AUTO) 11.6 K/uL (4.3-11.0)
[2023-12-12 20:55] LABS: ANISOCYTOSIS 1+; LYMPHOCYTES % (MANUAL) 6 % (16-48); MONOCYTES % (MANUAL) 3 % (0-11.0); NEUTROPHILS % (MANUAL) 91 (42-76); PLATELET ESTIMATE ADEQUATE; ROULEAUX 1+; STOMATOCYTES 1+
[2023-12-13] VITALS: BP 155/81; TEMP 99.3; O2SAT 98
[2023-12-13 04:00] VITALS: BP 148/80; TEMP 98; O2SAT 97
[2023-12-13 07:06] LABS: CALCIUM, SERUM 7.7 mg/dL (8.5-10.1); CREATININE 4.9 mg/dL (0.6-1.3); MAGNESIUM 2.1 mg/dL (1.8-2.4); PHOSPHORUS 4.3 mg/dL (2.5-4.9); POTASSIUM 4.2 mmol/L (3.5-5.1)
[2023-12-13 08:00] VITALS: BP 166/87; TEMP 97.9; O2SAT 97
[2023-12-13 08:40] LABS: BASOPHILS % (AUTO) 0.4 % (0.0-2.0); EOSINOPHILS # (AUTO) 0.1 K/uL (0.0-0.7); EOSINOPHILS % (AUTO) 0.9 % (0.0-6.0); HEMATOCRIT 25 % (39-51); HEMOGLOBIN 8.2 g/dL (13.5-17.5); LYMPHOCYTES # (AUTO) 0.9 K/uL (0.8-4.8); LYMPHOCYTES % (AUTO) 8.1 % (20.0-44.0); MEAN CORPUSCULAR HEMOGLOBIN 28 PG (26.0-33.0); MEAN CORPUSCULAR HGB CONC 33 g/dl (31.0-36.0); MEAN CORPUSCULAR VOLUME 87 fL (80-96); MONOCYTES # (AUTO) 0.6 K/uL (0.1-1.30); MONOCYTES % (AUTO) 5.3 % (2.0-12.0); NEUTROPHILS # (AUTO) 9.5 K/uL (1.8-8.9); NEUTROPHILS % (AUTO) 85.3 % (43.0-81.0); PLATELET COUNT (AUTO) 330 K/uL (150-450); RED CELL DISTRIBUTION WIDTH 15.1 % (11.5-15.0); WHITE BLOOD COUNT (AUTO) 11.2 K/uL (4.3-11.0)
[2023-12-13] MEDS ORDERED: METHADONE HCL 10 MG TABLET PO SCH (09:00)
[2023-12-13 12:00] VITALS: BP 164/89; TEMP 98.2; O2SAT 98
[2023-12-13] MEDS: hydrALAZINE HCL 25 MG TABLET PO PRN (14:15)
[2023-12-13 16:00] VITALS: BP 157/87; TEMP 98.8; O2SAT 100
[2023-12-13 20:00] VITALS: BP 147/79; TEMP 98.3; O2SAT 97
[2023-12-14] VITALS (7 sets, daily range): BP systolic 146–170; BP diastolic 80–86; TEMP 97.7–98.4; O2SAT 95–100
[2023-12-15 04:00] VITALS: BP 142/87; TEMP 98.1; O2SAT 97
[2023-12-15 10:00] VITALS: BP 166/85; TEMP 97.9; O2SAT 97
[2023-12-15 11:46] LABS: BASOPHILS # (AUTO) 0.1 K/uL (0.0-0.2); BASOPHILS % (AUTO) 0.7 % (0.0-2.0); EOSINOPHILS # (AUTO) 0.1 K/uL (0.0-0.7); EOSINOPHILS % (AUTO) 0.7 % (0.0-6.0); HEMATOCRIT 26 % (39-51); HEMOGLOBIN 8.5 g/dL (13.5-17.5); LYMPHOCYTES # (AUTO) 1.1 K/uL (0.8-4.8); LYMPHOCYTES % (AUTO) 11.1 % (20.0-44.0); MEAN CORPUSCULAR HEMOGLOBIN 29 PG (26.0-33.0); MEAN CORPUSCULAR HGB CONC 33 g/dl (31.0-36.0); MEAN CORPUSCULAR VOLUME 86 fL (80-96); MONOCYTES # (AUTO) 0.4 K/uL (0.1-1.30); MONOCYTES % (AUTO) 3.8 % (2.0-12.0); NEUTROPHILS # (AUTO) 8.6 K/uL (1.8-8.9); NEUTROPHILS % (AUTO) 83.7 % (43.0-81.0); PLATELET COUNT (AUTO) 351 K/uL (150-450); RED BLOOD CELL COUNT(AUTO) 2.98 MIL/uL (4.5-6.0); RED CELL DISTRIBUTION WIDTH 15.2 % (11.5-15.0); WHITE BLOOD COUNT (AUTO) 10.3 K/uL (4.3-11.0)
[2023-12-15 12:02] LABS: CALCIUM, SERUM 7.9 mg/dL (8.5-10.1); CREATININE 5.1 mg/dL (0.6-1.3); MAGNESIUM 2.1 mg/dL (1.8-2.4); PHOSPHORUS 4.6 mg/dL (2.5-4.9); POTASSIUM 4.4 mmol/L (3.5-5.1)
[2023-12-15 13:41] LABS: BAND % (MANUAL) 2 % (0.0-5.0); LYMPHOCYTES % (MANUAL) 7 % (16-48); NEUTROPHILS % (MANUAL) 91 (42-76)
[2023-12-15 13:44] LABS: ANISOCYTOSIS 1+; PLATELET ESTIMATE ADEQUATE
[2023-12-15 13:45] LABS: OVALOCYTES 1+
[2023-12-15] MEDS: HEPARIN SODIUM, PORCINE 5000 UNITS/1 ML VIAL SQ SCH (21:15)
[2023-12-15 22:00] VITALS: BP 158/84; TEMP 97.6; O2SAT 96
[2023-12-16] VITALS (8 sets, daily range): BP systolic 147–174; BP diastolic 82–90; TEMP 97.5–99.1; O2SAT 95–99
[2023-12-16 10:38] LABS: BASOPHILS # (AUTO) 0.1 K/uL (0.0-0.2); EOSINOPHILS # (AUTO) 0.1 K/uL (0.0-0.7); EOSINOPHILS % (AUTO) 1.2 % (0.0-6.0); HEMATOCRIT 25 % (39-51); HEMOGLOBIN 8.1 g/dL (13.5-17.5); LYMPHOCYTES # (AUTO) 1.4 K/uL (0.8-4.8); LYMPHOCYTES % (AUTO) 14.5 % (20.0-44.0); MEAN CORPUSCULAR HEMOGLOBIN 28 PG (26.0-33.0); MEAN CORPUSCULAR HGB CONC 33 g/dl (31.0-36.0); MEAN CORPUSCULAR VOLUME 86 fL (80-96); MONOCYTES # (AUTO) 0.5 K/uL (0.1-1.30); MONOCYTES % (AUTO) 4.9 % (2.0-12.0); NEUTROPHILS # (AUTO) 7.7 K/uL (1.8-8.9); NEUTROPHILS % (AUTO) 78.4 % (43.0-81.0); PLATELET COUNT (AUTO) 327 K/uL (150-450); RED BLOOD CELL COUNT(AUTO) 2.87 MIL/uL (4.5-6.0); RED CELL DISTRIBUTION WIDTH 15.6 % (11.5-15.0); WHITE BLOOD COUNT (AUTO) 9.8 K/uL (4.3-11.0)
[2023-12-16 12:21] LABS: CALCIUM, SERUM 7.7 mg/dL (8.5-10.1); CREATININE 4.3 mg/dL (0.6-1.3); MAGNESIUM 1.9 mg/dL (1.8-2.4); PHOSPHORUS 4.1 mg/dL (2.5-4.9); POTASSIUM 4.2 mmol/L (3.5-5.1)
[2023-12-17] VITALS: BP 151/75; TEMP 98.2; O2SAT 95
[2023-12-17 04:00] VITALS: BP 158/75; TEMP 98.4; O2SAT 95
[2023-12-17 06:36] LABS: BASOPHILS # (AUTO) 0.1 K/uL (0.0-0.2); BASOPHILS % (AUTO) 1.2 % (0.0-2.0); EOSINOPHILS # (AUTO) 0.1 K/uL (0.0-0.7); EOSINOPHILS % (AUTO) 1.6 % (0.0-6.0); HEMATOCRIT 23 % (39-51); HEMOGLOBIN 7.7 g/dL (13.5-17.5); LYMPHOCYTES # (AUTO) 1.5 K/uL (0.8-4.8); LYMPHOCYTES % (AUTO) 16.4 % (20.0-44.0); MEAN CORPUSCULAR HEMOGLOBIN 29 PG (26.0-33.0); MEAN CORPUSCULAR HGB CONC 34 g/dl (31.0-36.0); MEAN CORPUSCULAR VOLUME 86 fL (80-96); MONOCYTES # (AUTO) 0.5 K/uL (0.1-1.30); MONOCYTES % (AUTO) 5.8 % (2.0-12.0); NEUTROPHILS # (AUTO) 6.8 K/uL (1.8-8.9); PLATELET COUNT (AUTO) 272 K/uL (150-450); RED BLOOD CELL COUNT(AUTO) 2.63 MIL/uL (4.5-6.0); RED CELL DISTRIBUTION WIDTH 15.3 % (11.5-15.0); WHITE BLOOD COUNT (AUTO) 9.1 K/uL (4.3-11.0)
[2023-12-17 07:19] LABS: CALCIUM, SERUM 8.2 mg/dL (8.5-10.1); CREATININE 3.8 mg/dL (0.6-1.3); MAGNESIUM 1.9 mg/dL (1.8-2.4); POTASSIUM 3.9 mmol/L (3.5-5.1)
[2023-12-17] MEDS: THERAHONEY GEL 1.5 OZ TUBE TP SCH (10:17)
[2023-12-17 12:00] VITALS: BP 157/87; TEMP 98.3; O2SAT 95
[2023-12-17 20:00] VITALS: BP 138/62; TEMP 98.9; O2SAT 95
[2023-12-17] MEDS: MAGNESIUM HYDROXIDE 30 ML UDC PO PRN (22:58)
[2023-12-18 04:38] VITALS: BP 131/65; TEMP 98.1; O2SAT 90
[2023-12-18] MEDS: THERAHONEY GEL 1.5 OZ TUBE TP SCH (09:00)
[2023-12-18 11:31] LABS: BASOPHILS # (AUTO) 0.2 K/uL (0.0-0.2); BASOPHILS % (AUTO) 1.7 % (0.0-2.0); EOSINOPHILS # (AUTO) 0.2 K/uL (0.0-0.7); EOSINOPHILS % (AUTO) 1.9 % (0.0-6.0); HEMATOCRIT 25 % (39-51); HEMOGLOBIN 8.1 g/dL (13.5-17.5); LYMPHOCYTES # (AUTO) 1.8 K/uL (0.8-4.8); MEAN CORPUSCULAR HEMOGLOBIN 28 PG (26.0-33.0); MEAN CORPUSCULAR HGB CONC 33 g/dl (31.0-36.0); MEAN CORPUSCULAR VOLUME 87 fL (80-96); MONOCYTES # (AUTO) 0.5 K/uL (0.1-1.30); MONOCYTES % (AUTO) 4.6 % (2.0-12.0); NEUTROPHILS # (AUTO) 8.3 K/uL (1.8-8.9); NEUTROPHILS % (AUTO) 75.8 % (43.0-81.0); PLATELET COUNT (AUTO) 263 K/uL (150-450); RED BLOOD CELL COUNT(AUTO) 2.85 MIL/uL (4.5-6.0); RED CELL DISTRIBUTION WIDTH 16.2 % (11.5-15.0)
[2023-12-18 11:57] LABS: CALCIUM, SERUM 8.4 mg/dL (8.5-10.1); CREATININE 5.5 mg/dL (0.6-1.3); MAGNESIUM 2.1 mg/dL (1.8-2.4); PHOSPHORUS 4.8 mg/dL (2.5-4.9); POTASSIUM 4.6 mmol/L (3.5-5.1)
[2023-12-18 12:02] VITALS: BP 130/64; TEMP 97.9; O2SAT 95
[2023-12-18 20:00] VITALS: BP 134/79; TEMP 97.9; O2SAT 97
[2023-12-19 04:00] VITALS: BP 131/77; TEMP 98.1; O2SAT 94
[2023-12-19 08:00] VITALS: BP 128/75; TEMP 98.2; O2SAT 94
[2023-12-19 12:00] VITALS: BP 122/75; TEMP 98.6; O2SAT 94
[2023-12-19 18:00] VITALS: BP 157/83; TEMP 98.2; O2SAT 92
[2023-12-19 19:44] VITALS: BP 166/89; TEMP 98.8; O2SAT 95
[2023-12-19 20:00] VITALS: BP 166/89; TEMP 98.8; O2SAT 95
[2023-12-20 04:34] VITALS: BP 164/92; TEMP 97.7; O2SAT 95
[2023-12-20 08:00] VITALS: BP 157/91; TEMP 98.1; O2SAT 96
[2023-12-20 16:00] VITALS: BP 141/84; TEMP 98.1; O2SAT 97
[2023-12-20 17:06] LABS: BASOPHILS # (AUTO) 0.1 K/uL (0.0-0.2); BASOPHILS % (AUTO) 0.8 % (0.0-2.0); EOSINOPHILS # (AUTO) 0.1 K/uL (0.0-0.7); HEMATOCRIT 24 % (39-51); LYMPHOCYTES # (AUTO) 1.7 K/uL (0.8-4.8); LYMPHOCYTES % (AUTO) 17.1 % (20.0-44.0); MEAN CORPUSCULAR HEMOGLOBIN 29 PG (26.0-33.0); MEAN CORPUSCULAR HGB CONC 33 g/dl (31.0-36.0); MEAN CORPUSCULAR VOLUME 86 fL (80-96); MONOCYTES # (AUTO) 0.5 K/uL (0.1-1.30); MONOCYTES % (AUTO) 4.9 % (2.0-12.0); NEUTROPHILS # (AUTO) 7.6 K/uL (1.8-8.9); NEUTROPHILS % (AUTO) 76.2 % (43.0-81.0); PLATELET COUNT (AUTO) 219 K/uL (150-450); RED BLOOD CELL COUNT(AUTO) 2.78 MIL/uL (4.5-6.0); RED CELL DISTRIBUTION WIDTH 15.8 % (11.5-15.0)
[2023-12-20 17:49] LABS: CALCIUM, SERUM 8.1 mg/dL (8.5-10.1); CREATININE 3.6 mg/dL (0.6-1.3); POTASSIUM 3.7 mmol/L (3.5-5.1)
[2023-12-20 17:53] LABS: PHOSPHORUS 2.8 mg/dL (2.5-4.9)
[2023-12-20 18:18] LABS: ANISOCYTOSIS 1+; EOSINOPHILS % (MANUAL) 1 % (0-4); LYMPHOCYTES % (MANUAL) 9 % (16-48); MONOCYTES % (MANUAL) 4 % (0-11.0); NEUTROPHILS % (MANUAL) 86 (42-76); PLATELET ESTIMATE ADEQUATE
[2023-12-20 20:00] VITALS: BP 157/86; TEMP 98.4; O2SAT 96
[2023-12-21 04:00] VITALS: BP 157/86; TEMP 98.4; O2SAT 96
[2023-12-21 10:01] LABS: BASOPHILS # (AUTO) 0.1 K/uL (0.0-0.2); EOSINOPHILS # (AUTO) 0.1 K/uL (0.0-0.7); EOSINOPHILS % (AUTO) 0.5 % (0.0-6.0); HEMATOCRIT 24 % (39-51); HEMOGLOBIN 8.1 g/dL (13.5-17.5); LYMPHOCYTES % (AUTO) 18.9 % (20.0-44.0); MEAN CORPUSCULAR HEMOGLOBIN 29 PG (26.0-33.0); MEAN CORPUSCULAR HGB CONC 34 g/dl (31.0-36.0); MEAN CORPUSCULAR VOLUME 87 fL (80-96); MONOCYTES # (AUTO) 0.6 K/uL (0.1-1.30); MONOCYTES % (AUTO) 5.4 % (2.0-12.0); NEUTROPHILS # (AUTO) 7.7 K/uL (1.8-8.9); NEUTROPHILS % (AUTO) 74.2 % (43.0-81.0); PLATELET COUNT (AUTO) 186 K/uL (150-450); RED CELL DISTRIBUTION WIDTH 16.6 % (11.5-15.0); WHITE BLOOD COUNT (AUTO) 10.4 K/uL (4.3-11.0)
[2023-12-21 10:16] LABS: CALCIUM, SERUM 8.5 mg/dL (8.5-10.1); CREATININE 4.7 mg/dL (0.6-1.3); MAGNESIUM 2.2 mg/dL (1.8-2.4); PHOSPHORUS 3.7 mg/dL (2.5-4.9); POTASSIUM 4.4 mmol/L (3.5-5.1)
[2023-12-21 12:00] VITALS: BP 158/79; TEMP 97.7; O2SAT 100
[2023-12-21 20:00] VITALS: BP 164/84; TEMP 98.2; O2SAT 100
[2023-12-22 04:00] VITALS: BP 164/95; TEMP 98.3; O2SAT 96
[2023-12-22 12:00] VITALS: BP 148/80; TEMP 98.5; O2SAT 96
[2023-12-22 20:00] VITALS: BP 166/93; TEMP 98.6; O2SAT 96
[2023-12-23 04:00] VITALS: BP 156/84; TEMP 98.4; O2SAT 93
[2023-12-23 12:05] VITALS: BP 177/92; TEMP 98.4; O2SAT 96
[2023-12-23] MEDS ORDERED: LACTULOSE 10 G/15 ML UDC (PYXIS) PO PRN (13:00)
[2023-12-23] MEDS: PSYLLIUM SEED 1 PKT PACKET PO SCH (13:31)
[2023-12-23 14:49] LABS: HEMOGLOBIN 7.6 g/dL (13.5-17.5)
[2023-12-23 20:00] VITALS: BP 172/100; TEMP 97.3; O2SAT 98
[2023-12-23] MEDS: BISACODYL (5 MG) 5 MG TABLET.DR PO SCH (21:07)
[2023-12-24 04:00] VITALS: BP 148/90; TEMP 97.8; O2SAT 98
[2023-12-24 07:04] LABS: BASOPHILS # (AUTO) 0.1 K/uL (0.0-0.2); EOSINOPHILS # (AUTO) 0.2 K/uL (0.0-0.7); EOSINOPHILS % (AUTO) 1.5 % (0.0-6.0); HEMATOCRIT 22 % (39-51); HEMOGLOBIN 7.4 g/dL (13.5-17.5); LYMPHOCYTES # (AUTO) 1.9 K/uL (0.8-4.8); LYMPHOCYTES % (AUTO) 17.5 % (20.0-44.0); MEAN CORPUSCULAR HEMOGLOBIN 29 PG (26.0-33.0); MEAN CORPUSCULAR HGB CONC 34 g/dl (31.0-36.0); MEAN CORPUSCULAR VOLUME 87 fL (80-96); MONOCYTES # (AUTO) 0.7 K/uL (0.1-1.30); MONOCYTES % (AUTO) 6.2 % (2.0-12.0); NEUTROPHILS # (AUTO) 7.8 K/uL (1.8-8.9); NEUTROPHILS % (AUTO) 73.8 % (43.0-81.0); PLATELET COUNT (AUTO) 161 K/uL (150-450); RED BLOOD CELL COUNT(AUTO) 2.51 MIL/uL (4.5-6.0); RED CELL DISTRIBUTION WIDTH 17.8 % (11.5-15.0); WHITE BLOOD COUNT (AUTO) 10.6 K/uL (4.3-11.0)
[2023-12-24 08:00] VITALS: BP 177/97; TEMP 98.2; O2SAT 97
[2023-12-24 12:00] VITALS: BP 145/85; TEMP 98.3; O2SAT 98
[2023-12-24] MEDS: METHOCARBAMOL (750MG) 750 MG TABLET PO PRN (15:36)
[2023-12-24] MEDS: DICYCLOMINE HCL 10 MG CAPSULE PO PRN (15:36)
[2023-12-24] MEDS: GABAPENTIN 100 MG CAPSULE PO SCH (15:36)
[2023-12-24 16:00] VITALS: BP 178/96; TEMP 98.6; O2SAT 96
[2023-12-24] MEDS: METHADONE HCL 10 MG TABLET PO SCH (16:25)
[2023-12-24 18:00] VITALS: BP 140/78; TEMP 98.5; O2SAT 97
[2023-12-24 20:00] VITALS: BP 165/83; TEMP 98.8; O2SAT 97
[2023-12-25] VITALS (12 sets, daily range): BP systolic 146–162; BP diastolic 78–90; TEMP 97.5–98.8; O2SAT 96–97
[2023-12-25 06:43] LABS: BASOPHILS # (AUTO) 0.1 K/uL (0.0-0.2); BASOPHILS % (AUTO) 0.9 % (0.0-2.0); EOSINOPHILS # (AUTO) 0.2 K/uL (0.0-0.7); HEMATOCRIT 21 % (39-51); LYMPHOCYTES # (AUTO) 2.2 K/uL (0.8-4.8); MEAN CORPUSCULAR HEMOGLOBIN 29 PG (26.0-33.0); MEAN CORPUSCULAR HGB CONC 34 g/dl (31.0-36.0); MEAN CORPUSCULAR VOLUME 87 fL (80-96); MONOCYTES # (AUTO) 0.7 K/uL (0.1-1.30); MONOCYTES % (AUTO) 6.8 % (2.0-12.0); NEUTROPHILS % (AUTO) 68.3 % (43.0-81.0); PLATELET COUNT (AUTO) 161 K/uL (150-450); RED BLOOD CELL COUNT(AUTO) 2.38 MIL/uL (4.5-6.0); RED CELL DISTRIBUTION WIDTH 17.6 % (11.5-15.0); WHITE BLOOD COUNT (AUTO) 10.2 K/uL (4.3-11.0)
[2023-12-25 06:53] LABS: BILIRUBIN,DIRECT 0.4 mg/dL (0.0-0.2); BILIRUBIN,TOTAL 0.6 mg/dL (0.2-1.0); CALCIUM, SERUM 7.7 mg/dL (8.5-10.1); CREATININE 4.8 mg/dL (0.6-1.3); MAGNESIUM 2.2 mg/dL (1.8-2.4); PHOSPHORUS 3.3 mg/dL (2.5-4.9); POTASSIUM 4.3 mmol/L (3.5-5.1)
[2023-12-25 07:34] LABS: HEMOGLOBIN 6.9 g/dL (13.5-17.5)
[2023-12-25 07:50] LABS: ALBUMIN 1.2 g/dL (3.4-5.0)
[2023-12-25 15:38] LABS: BAND % (MANUAL) 2 % (0.0-5.0); EOSINOPHILS % (MANUAL) 2 % (0-4); LYMPHOCYTES % (MANUAL) 24 % (16-48); MONOCYTES % (MANUAL) 3 % (0-11.0); NEUTROPHILS % (MANUAL) 69 (42-76)
[2023-12-25 15:39] LABS: PLATELET ESTIMATE ADEQUATE
[2023-12-25 15:40] LABS: ANISOCYTOSIS 1+
[2023-12-25 19:16] LABS: HEMOGLOBIN 8.9 g/dL (13.5-17.5)
[2023-12-26 01:19] VITALS: BP 155/80; TEMP 98; O2SAT 100
[2023-12-26 05:10] LABS: HEPATITIS B CORE AB, IgM Negative (Negative); HEPATITIS B CORE AB, TOTAL Negative (Negative); HEPATITIS B SURFACE AB Reactive (.); HEPATITIS Be AG Negative (Negative)
[2023-12-26 08:00] VITALS: BP 176/93; TEMP 98; O2SAT 100
[2023-12-26 16:00] VITALS: BP 144/85; TEMP 98.3; O2SAT 100
[2023-12-26] MEDS: AMLODIPINE BESYLATE 5 MG TABLET PO SCH (17:48)
[2023-12-26 20:00] VITALS: BP 159/85; TEMP 98.1; O2SAT 94
[2023-12-27 06:00] VITALS: BP 171/94; TEMP 98; O2SAT 96
[2023-12-27 08:00] VITALS: BP 175/95; TEMP 97.9; O2SAT 96
[2023-12-27 16:00] VITALS: BP 161/101; TEMP 98.3; O2SAT 96
[2023-12-28] VITALS: BP 149/88; TEMP 98.4; O2SAT 94
[2023-12-28 04:00] VITALS: BP 149/80; TEMP 98.1; O2SAT 94
[2023-12-28 08:00] VITALS: BP 140/64; TEMP 98.1; O2SAT 97
[2023-12-28] MEDS: AMLODIPINE BESYLATE 5 MG TABLET PO SCH (09:03)
[2023-12-28 18:28] VITALS: BP 160/93; TEMP 98.1; O2SAT 93
== END 2023-12-28 18:53 | DRG 793 ==
LOC: ER 00:25 → TELE1 02:00 → ICU 04:43 → MEDSG1 12-01 11:21 → TELE1 12-03 20:11 → TELE-TD 12-04 01:30 → ICU 12-04 08:30 → TELE1 12-09 22:06 → TELE-TD 12-09 22:12 → TELE1 12-11 10:54 → MEDSG1 12-14 09:54
PROVIDERS: ADMIT Nurse Practitioner Family; ATTEND Nurse Practitioner Family
PROC: 30233N1 Transfusion of Nonautologous Red Blood Cells into Peripheral Vein, Percutaneous Approach (ICD-10-PCS; principal; 2023-11-23)
PROC: 0JBP0ZZ Excision of Left Lower Leg Subcutaneous Tissue and Fascia, Open Approach (ICD-10-PCS; 2023-11-23)
PROC: 02HV33Z Insertion of Infusion Device into Superior Vena Cava, Percutaneous Approach (ICD-10-PCS; 2023-11-24)
PROC: B548ZZA Ultrasonography of Superior Vena Cava, Guidance (ICD-10-PCS; 2023-11-24)
PROC: 5A1D70Z Performance of Urinary Filtration, Intermittent, Less than 6 Hours Per Day (ICD-10-PCS; 2023-11-24)
PROC: 05HM33Z Insertion of Infusion Device into Right Internal Jugular Vein, Percutaneous Approach (ICD-10-PCS; 2023-11-24)
PROC: B543ZZA Ultrasonography of Right Jugular Veins, Guidance (ICD-10-PCS; 2023-11-24)
PROC: B246ZZ4 Ultrasonography of Right and Left Heart, Transesophageal (ICD-10-PCS; 2023-11-30)
PROC: 0JH63XZ Insertion of Tunneled Vascular Access Device into Chest Subcutaneous Tissue and Fascia, Percutaneous Approach (ICD-10-PCS; 2023-12-12)
PROC: 02H633Z Insertion of Infusion Device into Right Atrium, Percutaneous Approach (ICD-10-PCS; 2023-12-12)
PROC: B518YZA Fluoroscopy of Superior Vena Cava using Other Contrast, Guidance (ICD-10-PCS; 2023-12-12)
PROC: 0KBB0ZZ Excision of Left Lower Arm and Wrist Muscle, Open Approach (ICD-10-PCS; 2023-12-17)
PROC: 0JBP0ZZ Excision of Left Lower Leg Subcutaneous Tissue and Fascia, Open Approach (ICD-10-PCS; 2023-12-17)
PROC: 0JBH0ZZ Excision of Left Lower Arm Subcutaneous Tissue and Fascia, Open Approach (ICD-10-PCS; 2023-12-24)
DX: T40.411A Poisoning by fentanyl or fentanyl analogs, accidental (unintentional), initial encounter (principal); R65.21 Severe sepsis with septic shock; J96.01 Acute respiratory failure with hypoxia; N17.0 Acute kidney failure with tubular necrosis; A40.0 Sepsis due to streptococcus, group A; G92.8 Other toxic encephalopathy; D63.8 Anemia in other chronic diseases classified elsewhere; E83.39 Other disorders of phosphorus metabolism; D68.69 Other thrombophilia; I95.9 Hypotension, unspecified; E46 Unspecified protein-calorie malnutrition; I50.33 Acute on chronic diastolic (congestive) heart failure; E85.9 Amyloidosis, unspecified; E87.1 Hypo-osmolality and hyponatremia; N18.9 Chronic kidney disease, unspecified; L03.116 Cellulitis of left lower limb; E66.3 Overweight; E83.51 Hypocalcemia; E87.20 Acidosis, unspecified; E87.5 Hyperkalemia; E88.09 Other disorders of plasma-protein metabolism, not elsewhere classified; F32.A Depression, unspecified; K59.00 Constipation, unspecified; L03.114 Cellulitis of left upper limb; L03.113 Cellulitis of right upper limb; Z99.2 Dependence on renal dialysis; Z86.19 Personal history of other infectious and parasitic diseases; Z68.29 Body mass index [BMI] 29.0-29.9, adult; S91.112A Laceration without foreign body of left great toe without damage to nail, initial encounter; X58.XXXA Exposure to other specified factors, initial encounter; Y93.9 Activity, unspecified; Y92.89 Other specified places as the place of occurrence of the external cause; M79.662 Pain in left lower leg; S80.822A Blister (nonthermal), left lower leg, initial encounter; D50.9 Iron deficiency anemia, unspecified; R45.851 Suicidal ideations; F11.20 Opioid dependence, uncomplicated; I48.0 Paroxysmal atrial fibrillation; M89.8X9 Other specified disorders of bone, unspecified site; I13.0 Hypertensive heart and chronic kidney disease with heart failure and stage 1 through stage 4 chronic kidney disease, or unspecified chronic kidney disease
CPT/HCPCS: 36415; 36569; 36600; 71045-TC; 73700-TC; 74018; 76700-TC; 80048-TC; 80053-TC; 80076-TC; 80202-TC; 81001; 82728-TC; 82803-TC; 82962-TC; 83540-TC; 83735-TC; 83880; 84100-TC; 84443-TC; 84484-TC; 85025-TC; 85027-TC; 85610-TC; 85730-TC; 86704; 86705; 86706; 86803; 86850-TC; 87040-TC; 87081-TC; 87086-TC; 87186-TC; 87340; 87350; 87806; 90935-TC; 93307-TC; 93312-TC; 93970-TC; 93971-TC; 94799-TC; 97110-TC; 97116-TC; 97530-TC; 98960; A4216; A4223; A6253; A6403; C1750; C1757; C1769; C1894; G0378; J0282; J0360; J0690; J0692; J0885; J1160; J1630; J1644; J1815; J1885; J1940; J2185; J2250; J2270; J2405; J2704; J3010; J3370; J3475; J3490; J7030; J7040; J7042; J7050; J7060; P9016; P9047; Q9967